=== PATIENT | female | born 1955 | race Caucasian/White ===

== ENCOUNTER → 2020-11-05 09:56 | Outpatient (CLI) | payer OTHER, SELFPAY ==
[2020-11-05 19:05] LABS: Alanine Aminotransferase 23 IU/L (<35); Albumin 3.8 g/dL (3.5-5.0); Albumin Globulin Ratio 1.3 (1.0-2.8); Alkaline Phosphatase 59 U/L (38-126); Aspartate Aminotransferase 30 IU/L (14-36); BUN Creatinine Ratio 14.9 (6-22); Bilirubin Total 0.7 mg/dL (0.2-1.3); Blood Urea Nitrogen 11 mg/dL (7-17); Calcium 9.4 mg/dL (8.4-10.2); Carbon Dioxide 32 mmol/L (22-32); Chloride 102 mmol/L (98-107); Cholesterol 228 mg/dL (140-199); Estimated Glomerular Filt Rate > 60.0 mL/min (>60); Globulin 2.9 g/dL (1.7-4.1); Glucose 102 mg/dL (80-110); HDL Cholesterol 52 mg/dL (40-60); HEMOLYSIS < 15 (0-50); LDL Cholesterol Calculated 143 mg/dL (<100); Potassium 4.1 mmol/L (3.4-5.1); Sodium 139 mmol/L (137-145); Total Protein 6.7 g/dL (6.3-8.2); Triglycerides 165 mg/dL (35-150)
[2020-11-07 12:20] LABS: HIV 1 & 2 Ab/Ag 4th Gen Combo NEGATIVE (NEGATIVE)
== END ==
PROVIDERS: PCP Physician Assistant; Referring Provider Family Medicine; Visit Provider Family Medicine
DX: Z00.00 Encounter for general adult medical examination without abnormal findings (principal)
CPT/HCPCS: 80053; 80061; 87389

== ENCOUNTER → 2021-02-24 12:10 | Outpatient (CLI) | payer OTHER, SELFPAY ==
--- NOTE | 2021-02-24 12:13 | DI.MRI.S_ITS ---
PROCEDURE: MRFOOT LT WO CON INDICATIONS: Pain in left foot TECHNIQUE: Noncontrast sagittal T1 spin echo and T2 fast spin echo with fat saturation, long-axis T1 spin echo and T2 fast spin echo with fat saturation, short-axis T1 spin echo and T2 fast spin echo with fat saturation through the forefoot. COMPARISON: None. FINDINGS: Image quality: Excellent. Bones and joints: Patchy T2 hyperintense/T1 hypointense signal is seen in the medial and lateral aspects of the 1st metatarsal head. Mild hallux valgus. T2 hyperintense signal within the medial and lateral hallux sesamoids. T2 hyperintense signal with interposed between the 1st and 2nd metatarsal heads, likely reflecting bursitis. No distinct fracture line or evidence of metatarsal stress fractures. No intraosseous lesions. Soft tissues: The visualized plantar foot muscles demonstrate normal signal and bulk. Visualized flexor and extensor tendons appear intact, without tenosynovitis. The distal insertions of the peroneus brevis and longus tendons appear intact. The principal Lisfranc ligament appears intact. Minimal T2 hyperintense signal is seen along the medial band of the plantar fascia without evidence of tear. IMPRESSION: 1. Mild hallux valgus deformity with degenerative changes of the 1st MTP and hallux sesamoid as detailed above. 2. Fluid interposed between the 1st and 2nd metatarsal heads, likely reflecting bursitis. 3. Mild fluid signal along the medial plantar fascia, which may reflect an acute inflammatory process. Dictated by: Jomar Upton M.D. on 02/24/2021 at 15:19 Approved by: Jomar Upton M.D. on 02/24/2021 at 15:26
== END ==
PROVIDERS: PCP Physician Assistant; Referring Provider Orthopaedic Surgery Foot and Ankle Surgery; Visit Provider Orthopaedic Surgery Foot and Ankle Surgery
DX: M20.12 Hallux valgus (acquired), left foot (principal); M79.672 Pain in left foot
CPT/HCPCS: 73718

== ENCOUNTER → 2022-05-25 13:44 | Outpatient (CLI) | payer MEDICARE, SELFPAY ==
[2022-05-25 21:21] LABS: Alanine Aminotransferase 31 IU/L (<35); Albumin Globulin Ratio 1.4 (1.0-2.8); Alkaline Phosphatase 56 U/L (38-126); Aspartate Aminotransferase 28 IU/L (14-36); BUN Creatinine Ratio 21.8 (6-22); Bilirubin Total 0.6 mg/dL (0.2-1.3); Blood Urea Nitrogen 17 mg/dL (7-17); Calcium 9.3 mg/dL (8.4-10.2); Carbon Dioxide 32 mmol/L (22-32); Chloride 97 mmol/L (98-107); Cholesterol 235 mg/dL (140-199); Estimated Glomerular Filt Rate > 60 mL/min (>60); Globulin 2.9 g/dL (1.7-4.1); Glucose 98 mg/dL (80-110); HDL Cholesterol 49 mg/dL (40-60); HEMOLYSIS < 15 (0-50); LDL Cholesterol Calculated 133 mg/dL (<100); Potassium 3.8 mmol/L (3.4-5.1); Sodium 136 mmol/L (137-145); Total Protein 6.9 g/dL (6.3-8.2); Triglycerides 264 mg/dL (35-150)
[2022-05-25 21:23] LABS: Add Manual Diff / Slide Review NO; Basophils Absolute Auto 0 /uL (0-100); Basophils Percent Auto 0.6 % (0-2); Eosinophils Absolute Auto 400 /uL (0-450); Eosinophils Percent Auto 6.3 % (2-4); Hematocrit 45.3 % (36-46); Lymphocytes Absolute Auto 2400 /uL (1100-4500); Mean Corpuscular HGB Conc 33.1 % (30-36); Mean Corpuscular Hemoglobin 30.4 PG (26-34); Mean Corpuscular Volume 91.6 fL (80-100); Monocytes Absolute Auto 600 /uL (0-900); Monocytes Percent Auto 9.8 % (3-14); Neutrophils Absolute Auto 2600 /uL (1500-7000); Neutrophils Percent Auto 43.3 % (50-75); Platelet Count 246 X10^3/uL (150-400); Red Blood Cell Count 4.95 X10^6/uL (4.0-5.2); Red Cell Distribution Width 13.7 % (11.6-14.8); White Blood Cell Count 6.1 X10^3/uL (4.5-11.0)
[2022-05-25 23:06] LABS: Hemoglobin A1C% w Est Avg Glu 5.7 % (4.0-6.0)
[2022-05-25 23:47] LABS: TSH w/ Reflex to FT4 1.94 uIU/mL (0.47-4.68)
== END ==
PROVIDERS: PCP Family Medicine; Visit Provider Family Medicine
DX: E78.2 Mixed hyperlipidemia (principal); F33.42 Major depressive disorder, recurrent, in full remission; G25.81 Restless legs syndrome; R60.9 Edema, unspecified
CPT/HCPCS: 80053; 80061; 83036; 84443; 85025

== ENCOUNTER → 2022-07-09 09:08 | Outpatient (CLI) | payer MEDICARE, SELFPAY ==
[2022-07-09 20:45] LABS: HEMOLYSIS < 15 (0-50); Iron 68 ug/dL (37-170)
[2022-07-09 20:57] LABS: Percent Iron Saturation 21 % (15-50); Total Iron Binding Capacity 321 ug/dL (265-497); Transferrin 257 mg/dL (206-381)
== END ==
PROVIDERS: PCP Family Medicine; Visit Provider Family Medicine
DX: G25.81 Restless legs syndrome (principal)
CPT/HCPCS: 83540; 83550

== ENCOUNTER → 2022-07-20 11:44 | Outpatient (CLI) | payer MEDICARE, SELFPAY ==
--- NOTE | 2022-07-20 11:46 | DI.MRI.S_ITS ---
PROCEDURE: MR SHOULDER RT WO CON INDICATIONS: right shoulder pain for 8 months. failed PT and cortisone shot TECHNIQUE: Noncontrast oblique coronal T2 fast spin echo with fat saturation, oblique sagittal T1 spin echo and T2 fast spin echo with fat saturation, axial T1 spin echo and T2 fast spin echo with fat saturation through the shoulder. COMPARISON: [facility] ([facility]), CR, XR SHOULDER RT MIN 2V, 04/08/2022, 9:37. FINDINGS: Image quality: Excellent. Rotator cuff: Mild T2 signal elevation diffusely throughout the supraspinatus and infraspinatus tendons at the humeral insertion sites extending the musculotendinous junctions, indicating tendinopathy. Superimposed moderate grade intrasubstance and bursal surface tearing of the mid/anterior supraspinatus tendon at the humeral insertion site, measuring roughly 5 mm anteroposterior. Low-grade partial-thickness intrasubstance tearing of the anterior, mid, and posterior infraspinatus tendon at the humeral insertion site extending the musculotendinous junction. Teres minor is intact. Subscapularis is intact. No rotator cuff atrophy. Bones and bursae: No bone marrow contusions or fractures. Moderate acromioclavicular joint degeneration. The acromion demonstrates conventional anatomy, without an os acromiale. No pathologic subacromial-subdeltoid or subcoracoid bursal fluid is present. Capsule and soft tissues: There is mild T2 signal elevation within the posterosuperior labrum. The long head of the biceps tendon demonstrates normal location and morphology. The rotator interval appears normal, without fibrosis. The coracohumeral ligament is normal in thickness. IMPRESSION: 1. Supraspinatus and infraspinatus tendinopathy with superimposed partial thickness tears. 2. No full-thickness rotator cuff tear. 3. Acromioclavicular joint osteoarthritis. 4. Possible posterosuperior labral tearing. Dictated by: Maday De La Torre M.D. on 07/20/2022 at 13:19 Transcribed by: CHIDI on 07/20/2022 at 13:21 Approved by: Maday De La Torre M.D. on 07/20/2022 at 16:47
== END ==
PROVIDERS: PCP Family Medicine; Referring Provider Family Medicine; Visit Provider Family Medicine
DX: M75.111 Incomplete rotator cuff tear or rupture of right shoulder, not specified as traumatic (principal); M19.011 Primary osteoarthritis, right shoulder; M25.511 Pain in right shoulder
CPT/HCPCS: 73221

== ENCOUNTER → 2022-08-06 14:01 | Outpatient (CLI) | payer MEDICARE, SELFPAY ==
[2022-08-10 14:54] LABS: Calprotectin, Stool 9 ug/g (0-120)
== END ==
PROVIDERS: PCP Family Medicine; Visit Provider Allergy & Immunology
DX: K52.9 Noninfective gastroenteritis and colitis, unspecified (principal)
CPT/HCPCS: 83993

== ENCOUNTER → 2022-12-02 12:12 | Outpatient (CLI) | payer MEDICARE, SELFPAY ==
--- NOTE | 2022-12-02 12:19 | DI.MG.S_ITS ---
BILATERAL DIGITAL SCREENING MAMMOGRAM 3D/2D WITH CAD: 12/02/2022 CLINICAL: Routine screening. Family history of breast cancer. Comparison is made to exams dated: 12/16/2020 mammogram, 09/14/2017 mammogram - outside location, and 10/05/2011 mammogram - [facility]. There are scattered areas of fibroglandular density in both breasts (category b / 25%-50% glandular tissue). Current study was also evaluated with a Computer Aided Detection (CAD) system. No significant masses, calcifications, or other findings are seen in either breast. There has been no significant interval change. IMPRESSION: NEGATIVE There is no mammographic evidence of malignancy. A 1 year screening mammogram is recommended. Based on the Tyrer Cuzick model (a risk assessment model) the patient's lifetime risk is 9.7% and her 10 year risk is 4.9%. According to the ACR, ACS, and NCCN guidelines, an annual breast MRI exam along with mammogram is recommended if the patient's lifetime risk is 20% or greater. This exam was interpreted at Station ID: [id number]. NOTE: For mammograms, a report in lay terms will be sent to the patient. Approximately 15% of breast malignancies will not be visualized mammographically. In the management of a palpable breast mass, a negative mammogram must not discourage biopsy of a clinically suspicious lesion. Electronically Signed By: Francis gregorio/sal:12/06/2022 14:29:32 copy to: EVANGELINA MACKEY letter sent: Normal Exam ACR BI-RADS Category 1: Negative [id number]
--- NOTE | 2022-12-02 12:19 | DI.US.S_ITS ---
PROCEDURE: US EXTREMITY NONVASC UPPER LT INDICATIONS: PALPABLE LUMP LEFT FOREARM TECHNIQUE: Real-time scanning was performed of the left forearm, with image documentation. COMPARISON: None. FINDINGS: Focused ultrasound examination of left forearm at patient's reported area of swelling shows no discrete soft tissue mass or fluid collection. IMPRESSION: No abnormality is seen in left forearm to account for patient's symptoms. Dictated by: Kenyon Moya M.D. on 12/02/2022 at 14:01 Approved by: Kenyon Moya M.D. on 12/02/2022 at 14:04
== END ==
PROVIDERS: PCP Family Medicine; Referring Provider Family Medicine; Visit Provider Family Medicine
DX: Z12.31 Encounter for screening mammogram for malignant neoplasm of breast (principal); Z80.3 Family history of malignant neoplasm of breast; R22.32 Localized swelling, mass and lump, left upper limb; M75.41 Impingement syndrome of right shoulder; M75.21 Bicipital tendinitis, right shoulder; M19.011 Primary osteoarthritis, right shoulder
CPT/HCPCS: 20611; 76882; 77063; 77067; 99214; J0702

== ENCOUNTER 2023-01-11 18:36 | Emergency (ER) | payer MEDICARE, SELFPAY ==
[2023-01-11 18:40] VITALS: BP 141/86; PULSE 62; RESP 16; TEMP 36.8; O2SAT 98; BMI 36.3
--- NOTE | 2023-01-11 18:46 | DI.RAD.S_ITS ---
PROCEDURE: XR CHEST 1V INDICATIONS: chest pain TECHNIQUE: One view of the chest was acquired. COMPARISON: [facility], , CHEST 2 VIEW, 04/25/2009, 15:25. FINDINGS: Surgical changes and devices: Right upper quadrant surgical clips.. Lungs and pleura: Lungs are clear. No pleural effusions or pneumothorax. Mediastinum: Mediastinal contours appear normal. Heart size is normal. Bones and chest wall: No suspicious bony lesions. Overlying soft tissues appear unremarkable. IMPRESSION: No acute cardiopulmonary process. Dictated by: Anand Cantu M.D. on 01/11/2023 at 20:01 Approved by: Anand Cantu M.D. on 01/11/2023 at 20:01
[2023-01-11 19:06] LABS: Add Manual Diff / Slide Review NO; Basophils Absolute Auto 100 /uL (0-100); Basophils Percent Auto 1.4 % (0-2); Eosinophils Absolute Auto 200 /uL (0-450); Eosinophils Percent Auto 2.1 % (2-4); Hematocrit 43.1 % (36-46); Hemoglobin 14.5 g/dL (12.0-16.0); Lymphocytes Absolute Auto 2600 /uL (1100-4500); Lymphocytes Percent Auto 34.4 % (25-40); Mean Corpuscular HGB Conc 33.7 % (30-36); Mean Corpuscular Hemoglobin 31.1 PG (26-34); Mean Corpuscular Volume 92.3 fL (80-100); Monocytes Absolute Auto 700 /uL (0-900); Monocytes Percent Auto 9.8 % (3-14); Neutrophils Absolute Auto 4000 /uL (1500-7000); Neutrophils Percent Auto 52.3 % (50-75); Platelet Count 229 X10^3/uL (150-400); Red Blood Cell Count 4.67 X10^6/uL (4.0-5.2); Red Cell Distribution Width 13.9 % (11.6-14.8); White Blood Cell Count 7.6 X10^3/uL (4.5-11.0)
[2023-01-11 19:12] LABS: PTT Partial Thromboplastin Tim 29 SECONDS (26-36)
[2023-01-11 19:14] LABS: Alanine Aminotransferase 32 IU/L (<35); Albumin 4.4 g/dL (3.5-5.0); Albumin Globulin Ratio 1.3 (1.0-2.8); Alkaline Phosphatase 48 U/L (38-126); Aspartate Aminotransferase 29 IU/L (14-36); BUN Creatinine Ratio 20.8 (6-22); Bilirubin Total 0.6 mg/dL (0.2-1.3); Blood Urea Nitrogen 15 mg/dL (7-17); Calcium 10.1 mg/dL (8.4-10.2); Carbon Dioxide 34 mmol/L (22-32); Chloride 96 mmol/L (98-107); Creatine Kinase 48 U/L (30-135); Estimated Glomerular Filt Rate > 60 mL/min (>60); Globulin 3.5 g/dL (1.7-4.1); Glucose 103 mg/dL (80-110); HEMOLYSIS < 15 (0-50); Lipase 67 U/L (23-300); Magnesium 2.3 mg/dL (1.6-2.3); Potassium 3.5 mmol/L (3.4-5.1); Sodium 137 mmol/L (137-145); Total Protein 7.9 g/dL (6.3-8.2)
[2023-01-11 19:25] LABS: Troponin I < 0.012 ng/mL (0.01-0.034)
[2023-01-11 22:32] VITALS: PULSE 63; RESP 17; O2SAT 96
[2023-01-11 23:00] VITALS: BP 127/65; PULSE 63; O2SAT 96
[2023-01-11 23:30] VITALS: BP 115/56; PULSE 57; RESP 14; O2SAT 91
[2023-01-11 23:42] LABS: COVID19 -Nasal RAPID Negative (Negative)
--- NOTE | 2023-01-11 23:58 | ED_ITS ---
HPI - Arrhythmia/Palpitations General Chief Complaint: Arrhythmia/Palpitations Stated Complaint: heart palpitations Time Seen by Provider: 01/11/23 23:10 Source: patient Mode of arrival: Ambulatory History of Present Illness HPI narrative: 67-year-old woman with a history of celiac disease and depression presented to her primary care physician today with complaints of 2 weeks of intermittent palpitations. Patient describes chest tightness and brief dizziness with the palpitations. After a couple irregular heartbeats she has the sensation of needing to cough or burp and then the symptoms resolve. She was seen by her primary care physician for further evaluation in the emergency department Related Data Home Medications Medication Instructions Recorded Confirmed cetirizine 10 mg tablet 10 mg PO DAILY PRN 10/07/20 01/11/23 zolpidem 5 mg tablet 5 mg PO BEDTIME PRN 10/07/20 01/11/23 hydrochlorothiazide 25 mg tablet 25 mg PO DAILY 04/08/22 01/11/23 ropinirole 0.25 mg tablet 0.25 mg PO BID 12/02/22 01/11/23 Previous Rx's Medication Instructions Recorded gabapentin 100 mg capsule 200 mg (2 x 100 mg) PO TID PRN 10/22/22 restless legs #360 caps gabapentin 400 mg capsule 400 mg PO BEDTIME #60 caps 10/22/22 bupropion HCl 150 mg 24 hr tablet, 150 mg PO QAM #30 tabs 01/01/23 extended release escitalopram oxalate 5 mg tablet 5 mg PO DAILY #30 tabs 01/01/23 Allergies Allergy/AdvReac Type Severity Reaction Status Date / Time clindamycin AdvReac Unknown rash Verified 01/11/23 18:45 egg AdvReac Unknown Verified 01/11/23 18:45 Egg Derived AdvReac Unknown Verified 01/11/23 18:45 gluten AdvReac Unknown Verified 01/11/23 18:45 milk AdvReac Unknown Verified 01/11/23 18:45 morphine AdvReac Unknown difficulty Verified 01/11/23 18:45 reversing, family hx Penicillins AdvReac Unknown hives Verified 01/11/23 18:45 prazosin AdvReac Unknown Verified 01/11/23 18:45 sulfamethoxazole AdvReac Unknown Diarrhea Verified 01/11/23 18:45 Review of Systems Review of Systems Narrative: Pertinent positive and negative findings as per HPI Patient History Medical History (Updated 01/12/23 @ 00:42 by Bernadette Solis MD) Acromioclavicular joint arthritis Sleep apnea Polycythemia GI symptoms Mass of left forearm Cervicalgia Partial thickness rotator cuff tear Biceps tendonitis on right Adverse effect of dopamine receptor agonist Depression, major Obesity (BMI 35.0-39.9 without comorbidity) Hyperlipidemia, mixed Esophageal reflux Hand arthritis Insomnia Restless leg syndrome Post-cholecystectomy syndrome Celiac disease Social History Smoking Status: Never smoker Smoking Status: Never smoker alcohol intake frequency: 0-2 drinks per day Substance Use Type: does not use Exam Initial Vital Signs Initial Vital Signs: Vital Signs Temperature 98.3 F 01/11/23 18:40 Pulse Rate 62 01/11/23 18:40 Respiratory Rate 16 01/11/23 18:40 Blood Pressure 141/86 H 01/11/23 18:40 Pulse Oximetry 98 01/11/23 18:40 Oxygen Delivery Method Room Air 01/11/23 18:40 Course Orders Ordered: ED Orders 01/11/23 18:46 XR chest 1V Stat EKG-12 Lead Stat 01/11/23 18:50 Complete Blood Count AUTO DIFF Stat Comprehensive Metabolic Panel Stat Lipase Stat Magnesium Stat PTT Partial Thromboplastin Christopher Stat Prothrombin Time INR Stat Troponin & CK Cardiac Panel Stat 01/11/23 22:00 COVID19 -Nasal RAPID Stat Discontinued Medications Aspirin (Aspirin 81 Mg Chew Tab) 324 mg PO NOW ONE Stop: 01/11/23 18:47 Last Admin: 01/11/23 20:58 Dose: Not Given Documented By: KLS Vital Signs Vital signs: Vital Signs - 8 hr 01/11/23 18:40 01/11/23 22:32 Temperature 98.3 F Pulse Rate 62 63 Respiratory Rate 16 17 Blood Pressure 141/86 H Pulse Oximetry 98 96 Oxygen Delivery Method Room Air Room Air MDM - Arrhythmia/Palpitations Lab Data 01/11/23 18:50 01/11/23 18:50 Labs: Lab Results 01/11/23 01/11/23 Range/Units 18:50 22:00 WBC 7.6 (4.5-11.0) X10^3/uL RBC 4.67 (4.0-5.2) X10^6/uL Hgb 14.5 (12.0-16.0) g/dL Hct 43.1 (36-46) % MCV 92.3 (80-100) fL MCH 31.1 (26-34) PG MCHC 33.7 (30-36) % RDW 13.9 (11.6-14.8) % Plt Count 229 (150-400) X10^3/uL Neut % (Auto) 52.3 (50-75) % Lymph % (Auto) 34.4 (25-40) % [place] % (Auto) 9.8 (3-14) % Eos % (Auto) 2.1 (2-4) % Baso % (Auto) 1.4 (0-2) % Neut # (Auto) 4000 (9766-6357) /uL Lymph # (Auto) 2600 (7081-8314) /uL [place] # (Auto) 700 (0-900) /uL Eos # (Auto) 200 (0-450) /uL Baso # (Auto) 100 (0-100) /uL PT 11.0 (10.1-12.7) SECONDS INR 1.0 (0.9-1.3) APTT 29 (26-36) SECONDS Sodium 137 (137-145) mmol/L Potassium 3.5 (3.4-5.1) mmol/L Chloride 96 L (98-107) mmol/L Carbon Dioxide 34 H (22-32) mmol/L BUN 15 (7-17) mg/dL Creatinine 0.72 (0.52-1.04) mg/dL Estimated GFR > 60 (>60) mL/min BUN/Creatinine Ratio 20.8 (6-22) Glucose 103 (80-110) mg/dL Calcium 10.1 (8.4-10.2) mg/dL Magnesium 2.3 (1.6-2.3) mg/dL Total Bilirubin 0.6 (0.2-1.3) mg/dL AST 29 (14-36) IU/L ALT 32 (<35) IU/L Alkaline Phosphatase 48 (38-126) U/L Total Creatine Kinase 48 (30-135) U/L Troponin I < 0.012 (0.01-0.034) ng/mL Total Protein 7.9 (6.3-8.2) g/dL Albumin 4.4 (3.5-5.0) g/dL Globulin 3.5 (1.7-4.1) g/dL Albumin/Globulin Ratio 1.3 (1.0-2.8) Lipase 67 (23-300) U/L SARS-CoV-2 (PCR) Negative (Negative) MDM Narrative Medical decision making narrative: CC: 2 weeks of intermittent and brief palpitations Complicating co-morbidities: Data collected from: patient, Social determinants of health that may influence the patients condition: Medical records reviewed: Primary care note from today for similar problem is reviewed Differential considered: PACs, PVCs, acute coronary syndrome, pericarditis, costochondritis Exam documented above, pertinent findings include: Reproducible chest pain along the left sternal border but not actually at the costochondral angles. Exam is otherwise completely benign. Lab Test results independently reviewed as above. Pertinent findings: CBC is unremarkable Chemistries show slightly elevated CO2 at 34 but otherwise unremarkable with normal renal function. Troponin is undetectable Lipase is unremarkable Independently reviewed EKG sinus bradycardia at a rate of 59 with normal intervals, normal axis and no acute ischemic changes Imaging studies independently reviewed: Chest x-ray is entirely reassuring Re-evaluations: Patient is reporting multiple palpations and sensations of her heart beating irregularly and on telemetry she remains in a sinus rhythm without any abnormalities Discussion: 67-year-old woman with 2 weeks of palpitations sometimes associated with chest pain comes in for further evaluation. Workup is reassuring. Her chest pain can be reproducible with pressure feels more along the ribs rather than costochondral margins. Her palpitations sensation is not associated with any obvious palpitations on telemetry. Labs are reassuring. At this point there is no evidence of acute coronary syndrome, pathologic arrhythmia, significant electrolyte abnormalities, pulmonary embolism. The patient notes that she is been having increased symptoms with her restless legs/restless body syndrome and her Requip has not been as effective. She is been tapering down on escitalopram tapering up on Wellbutrin and it sounds like she and her physician have had a good conversation regarding additional explanations for her palpitation sensations. She does have follow-up scheduled for Wednesday of this week. At this point she is safe for discharge Discharge Plan Departure Patient Disposition: Home Clinical Impression: Heart palpitations Activity Restrictions/Additional Instructions: Thank you for coming in today Your workup was very reassuring. There is no evidence of heart attack or heart attack like syndrome. Your chest x-ray was reassuring. No evidence of bacterial infection, kidney abnormalities or electrolyte dysfunction. When you are having the sensation of palpitations I was not seeing any significant cardiac rhythm changes. I do not have a complete explanation for the sensations that you are experiencing but it does sound like you are working with your primary care doctor to come to a more definitive answer. Please keep your appointment on Wednesday If you find that you are getting worse or develop any new symptoms, please feel free to return to the emergency department for further evaluation. Prescriptions: No Action gabapentin 100 mg capsule 200 mg PO TID PRN (Reason: restless legs) Qty: 360 6RF Rx Instructions: Take 2 caps (200mg) qam & qpm ; then take 2 caps(200mg) in addition to 1 cap(400mg) qhs; max dose per day 1000mg between both Rx's gabapentin 400 mg capsule 400 mg PO BEDTIME Qty: 60 6RF Rx Instructions: take 400mg cap in addition to 2-(100mg caps) total dose 600mg nightly. max dose 1000mg daily between both Rx's zolpidem 5 mg tablet 5 mg PO BEDTIME PRN cetirizine 10 mg tablet 10 mg PO DAILY PRN bupropion HCl 150 mg tablet extended release 24 hr 150 mg PO QAM Qty: 30 5RF Rx Instructions: decrease escitalaprm escitalopram oxalate 5 mg tablet 5 mg PO DAILY Qty: 30 0RF Rx Instructions: tapering escitalapram . see taper schedule hydrochlorothiazide 25 mg tablet 25 mg PO DAILY betamethasone acet,sod phos 6 mg/mL suspension 12 mg intrabursal ONCE Qty: 2 0RF ropinirole 0.25 mg tablet 0.25 mg PO BID Referrals: Darlene Price MD [Primary Care Provider] - Stand Alone Forms: Patient Portal/API
[2023-01-12] VITALS: BP 98/56; PULSE 63; RESP 15; O2SAT 93
[2023-01-12 00:28] VITALS: BP 132/72; PULSE 57; RESP 20; O2SAT 97
[2023-01-12 00:29] VITALS: BP 132/72; PULSE 55
[2023-01-12 00:30] VITALS: BP 138/75; PULSE 58; RESP 22; O2SAT 96
== END 2023-01-12 00:50 | disposition home or self-care (01) ==
PROVIDERS: Emergency Provider Emergency Medicine; PCP Family Medicine
DX: R00.2 Palpitations (principal); R07.9 Chest pain, unspecified; Z20.822 Contact with and (suspected) exposure to COVID-19
CPT/HCPCS: 36415; 71045; 80053; 81003; 82550; 83690; 83735; 84484; 85025; 85610; 85730; 87635; 93005; 93010; 99284; C9803

== ENCOUNTER → 2023-03-08 13:08 | Outpatient (CLI) | payer MEDICARE, SELFPAY ==
--- NOTE | 2023-03-08 13:11 | DI.RAD.S_ITS ---
PROCEDURE: XR KNEE LT 3V INDICATIONS: LEFT KNEE TECHNIQUE: 3 views of the knee were acquired. COMPARISON: None. FINDINGS: Bones: No fractures or dislocations. Osteoarthritic changes of the left knee with minimal spurring and moderate medial joint space narrowing. No suspicious bony lesions. Soft tissues: No joint effusion. No suspicious soft tissue calcifications. IMPRESSION: No acute osseous abnormalities. Moderate osteoarthritic changes of the left knee. Dictated by: Anand Cantu M.D. on 03/08/2023 at 15:29 Approved by: Anand Cantu M.D. on 03/08/2023 at 15:29
== END ==
PROVIDERS: PCP Family Medicine; Referring Provider Physical Medicine & Rehabilitation; Visit Provider Physical Medicine & Rehabilitation
DX: M17.12 Unilateral primary osteoarthritis, left knee (principal); M75.41 Impingement syndrome of right shoulder; M19.011 Primary osteoarthritis, right shoulder
CPT/HCPCS: 20611; 73562; 99214

== ENCOUNTER → 2023-04-05 11:00 | Outpatient (CLI) | payer MEDICARE, SELFPAY ==
[2023-04-14 14:52] LABS: DQ8 (DQA1 03XX, DQB1 0302) Negative (.)
== END ==
PROVIDERS: Internal Medicine Gastroenterology; PCP Family Medicine
DX: Z12.11 Encounter for screening for malignant neoplasm of colon (principal); K90.0 Celiac disease; K90.41 Non-celiac gluten sensitivity; T78.1XXA Other adverse food reactions, not elsewhere classified, initial encounter
CPT/HCPCS: 81377

== ENCOUNTER → 2023-06-15 09:43 | Outpatient (CLI) | payer MEDICARE, SELFPAY ==
[2023-06-15 19:10] LABS: Cholesterol 215 mg/dL (140-199); HDL Cholesterol 49 mg/dL (40-60); LDL Cholesterol Calculated 137 mg/dL (<100); Triglycerides 146 mg/dL (35-150)
[2023-06-15 19:22] LABS: Hematocrit 44.2 % (36-46); Hemoglobin 14.8 g/dL (12.0-16.0)
[2023-06-15 19:40] LABS: TSH w/ Reflex to FT4 1.34 uIU/mL (0.47-4.68)
== END ==
PROVIDERS: PCP Family Medicine; Visit Provider Family Medicine
DX: E78.2 Mixed hyperlipidemia (principal); R00.0 Tachycardia, unspecified
CPT/HCPCS: 80061; 84443; 85014; 85018

== ENCOUNTER → 2023-07-29 08:39 | Outpatient (CLI) | payer MEDICARE, SELFPAY ==
[2023-07-29 19:30] LABS: HEMOLYSIS < 15 (0-50); Iron 106 ug/dL (37-170)
[2023-07-29 19:40] LABS: Percent Iron Saturation 33 % (15-50); Total Iron Binding Capacity 322 ug/dL (265-497); Transferrin 251 mg/dL (206-381)
[2023-07-29 20:07] LABS: Ferritin 69 ng/mL (11-264)
== END ==
PROVIDERS: PCP Family Medicine; Visit Provider Internal Medicine Sleep Medicine
DX: G25.81 Restless legs syndrome (principal); E83.10 Disorder of iron metabolism, unspecified
CPT/HCPCS: 82728; 83540; 83550

== ENCOUNTER → 2023-09-06 11:23 | Outpatient (CLI) | payer MEDICARE, SELFPAY ==
[2023-09-06 19:47] LABS: C-Reactive Protein Quant < 0.5 mg/dL (<1.0)
[2023-09-08 21:09] LABS: Deamidated Gliadin Ab IgA 4 units (0-19); Deamidated Gliadin Ab IgG 3 units (0-19); Immunoglobulin A,Qn 203 mg/dL (87-352); t-Transglutaminase IgA 3 U/mL (0-3)
[2023-09-10 06:10] LABS: Chromogranin A, Serum 32.3 ng/mL (0.0-101.8)
== END ==
PROVIDERS: PCP Family Medicine; Visit Provider Internal Medicine Gastroenterology
DX: Z12.11 Encounter for screening for malignant neoplasm of colon (principal); R19.7 Diarrhea, unspecified; K90.0 Celiac disease; T78.1XXA Other adverse food reactions, not elsewhere classified, initial encounter
CPT/HCPCS: 82784; 83516; 86140; 86316

== ENCOUNTER → 2023-12-15 09:30 | Outpatient (CLI) | payer MEDICARE, SELFPAY ==
[2023-12-15 19:10] LABS: HEMOLYSIS < 15 (0-50); Iron 211 ug/dL (37-170)
[2023-12-15 19:21] LABS: Total Iron Binding Capacity 272 ug/dL (265-497); Transferrin 216 mg/dL (206-381)
[2023-12-15 19:22] LABS: Percent Iron Saturation 78 % (15-50)
[2023-12-15 19:46] LABS: Ferritin 160 ng/mL (11-264)
== END ==
PROVIDERS: PCP Family Medicine; Referring Provider Internal Medicine Sleep Medicine; Visit Provider Internal Medicine Sleep Medicine
DX: G25.81 Restless legs syndrome (principal)
CPT/HCPCS: 82728; 83540; 83550

== ENCOUNTER → 2024-03-24 09:59 | Outpatient (CLI) | payer MEDICARE, SELFPAY ==
[2024-03-24 19:54] LABS: HEMOLYSIS 19 (0-50); Iron 132 ug/dL (37-170)
[2024-03-24 19:57] LABS: Alanine Aminotransferase 34 IU/L (<35); Albumin 4.1 g/dL (3.5-5.0); Albumin Globulin Ratio 1.3 (1.0-2.8); Alkaline Phosphatase 58 U/L (38-126); Aspartate Aminotransferase 33 IU/L (14-36); BUN Creatinine Ratio 20.5 (6-22); Bilirubin Total 0.9 mg/dL (0.2-1.3); Blood Urea Nitrogen 18 mg/dL (7-17); Calcium 9.7 mg/dL (8.4-10.2); Carbon Dioxide 29 mmol/L (22-32); Chloride 101 mmol/L (98-107); Estimated Glomerular Filt Rate > 60 mL/min (>60); Globulin 3.1 g/dL (1.7-4.1); Glucose 131 mg/dL (80-110); HEMOLYSIS 21 (0-50); Potassium 3.5 mmol/L (3.4-5.1); Sodium 137 mmol/L (137-145); Total Protein 7.2 g/dL (6.3-8.2)
[2024-03-24 20:04] LABS: Hemoglobin A1C% w Est Avg Glu 5.6 % (4.0-6.0)
[2024-03-24 20:05] LABS: Percent Iron Saturation 47 % (15-50); Total Iron Binding Capacity 278 ug/dL (265-497); Transferrin 253 mg/dL (206-381)
[2024-03-24 20:33] LABS: Ferritin 124 ng/mL (11-264)
[2024-03-24 20:47] LABS: Vitamin B12 443 pg/mL (239-931)
[2024-03-27 04:36] LABS: Ionized Calcium 5.2 mg/dL (4.5-5.6)
== END ==
PROVIDERS: PCP Family Medicine; Referring Provider Psychiatry & Neurology Neurology; Visit Provider Psychiatry & Neurology Neurology
DX: G25.81 Restless legs syndrome (principal)
CPT/HCPCS: 80053; 82330; 82607; 82728; 83036; 83540; 83550; 83735

== ENCOUNTER → 2024-06-15 09:25 | Outpatient (CLI) | payer MEDICARE, SELFPAY ==
[2024-06-15 18:48] LABS: Add Manual Diff / Slide Review NO; Basophils Absolute Auto 100 /uL (0-100); Basophils Percent Auto 0.5 % (0-2); Eosinophils Absolute Auto 200 /uL (0-450); Eosinophils Percent Auto 1.5 % (2-4); Hematocrit 43.3 % (36-46); Hemoglobin 14.4 g/dL (12.0-16.0); Lymphocytes Absolute Auto 1900 /uL (1100-4500); Lymphocytes Percent Auto 13.4 % (25-40); Mean Corpuscular HGB Conc 33.2 % (30-36); Mean Corpuscular Hemoglobin 30.9 PG (26-34); Mean Corpuscular Volume 93.3 fL (80-100); Monocytes Absolute Auto 800 /uL (0-900); Monocytes Percent Auto 5.8 % (3-14); Neutrophils Absolute Auto 11000 /uL (1500-7000); Neutrophils Percent Auto 78.8 % (50-75); Platelet Count 207 X10^3/uL (150-400); Red Blood Cell Count 4.64 X10^6/uL (4.0-5.2); Red Cell Distribution Width 13.7 % (11.6-14.8)
[2024-06-15 19:21] LABS: Erythrocyte Sedimentation Rate 4 MM/HR (0-20)
[2024-06-15 19:29] LABS: TSH w/ Reflex to FT4 1.24 uIU/mL (0.47-4.68)
== END ==
PROVIDERS: PCP Family Medicine; Visit Provider Physician Assistant Medical
DX: H60.90 Unspecified otitis externa, unspecified ear (principal); R22.1 Localized swelling, mass and lump, neck; B37.9 Candidiasis, unspecified
CPT/HCPCS: 84443; 85025; 85651; 87070; 87075; 87205

== ENCOUNTER 2024-06-15 17:14 | Emergency (ER) | payer MEDICARE, SELFPAY ==
[2024-06-15] VITALS (9 sets, daily range): BP systolic 123–163; BP diastolic 63–82; PULSE 79–108; RESP 16–20; TEMP 36.5; O2SAT 95–99; BMI 35.4
--- NOTE | 2024-06-15 17:53 | DI.RAD.S_ITS ---
PROCEDURE: XR CHEST 1V INDICATIONS: suspected sepsis TECHNIQUE: One view of the chest was acquired. COMPARISON: [facility] ([place]), CR, XR CHEST 2V, 06/02/2024, 16:10. [facility], CR, XR CHEST 1V, 01/11/2023, 19:15. FINDINGS: Surgical changes and devices: Right upper quadrant surgical clips. Lungs and pleura: Lungs are clear. No pleural effusions or pneumothorax. Mediastinum: Mediastinal contours appear normal. Heart size is normal. Bones and chest wall: No suspicious bony lesions. Overlying soft tissues appear unremarkable. IMPRESSION: No acute cardiothoracic process. Dictated by: Ruben Cox M.D. on 06/15/2024 at 17:38 Approved by: Ruben Cox M.D. on 06/15/2024 at 17:39
--- NOTE | 2024-06-15 17:53 | EKG_ITS ---
[address] [address] Test Date: 2024-06-15 Pat Name: Lyn Youssef Department: Room: Gender: Female [employer] Supervisor: : [id number] Requested By: Order Number: [id number] Reading MD: Alexandru Hargrove MD Measurements Intervals [place] Rate: 105 P: 57 DC: 160 QRS: 10 QRSD: 80 T: 20 QT: 318 QTc: 420 Interpretive Statements Sinus tachycardia Possible Left atrial enlargement Electronically Signed On 06-16-2024 6:42:13 PDT by Alexandru Hargrove MD
[2024-06-15 18:56] LABS: Add Manual Diff / Slide Review NO; Appearance Urine UA CLEAR; Basophils Absolute Auto 100 /uL (0-100); Basophils Percent Auto 1.1 % (0-2); Bilirubin Urine UA NEGATIVE (NEGATIVE); Color Urine UA YELLOW; Eosinophils Absolute Auto 200 /uL (0-450); Eosinophils Percent Auto 1.2 % (2-4); Glucose Urine UA NEGATIVE (Negative); Hematocrit 41.9 % (36-46); Ketones Urine UA NEGATIVE (NEGATIVE); Leukocyte Esterase Urine UA NEGATIVE (NEGATIVE); Lymphocytes Absolute Auto 2200 /uL (1100-4500); Mean Corpuscular HGB Conc 33.5 % (30-36); Mean Corpuscular Hemoglobin 31.1 PG (26-34); Mean Corpuscular Volume 92.7 fL (80-100); Monocytes Absolute Auto 1000 /uL (0-900); Monocytes Percent Auto 6.9 % (3-14); Neutrophils Absolute Auto 10400 /uL (1500-7000); Neutrophils Percent Auto 74.8 % (50-75); Nitrite Urine UA NEGATIVE (Negative); Occult Blood Urine UA NEGATIVE (Negative); Platelet Count 205 X10^3/uL (150-400); Protein Urine UA NEGATIVE (Negative); Red Blood Cell Count 4.52 X10^6/uL (4.0-5.2); Red Cell Distribution Width 13.6 % (11.6-14.8); Urobilinogen Urine UA 0.2 E.U./dL (0.2); White Blood Cell Count 13.9 X10^3/uL (4.5-11.0)
[2024-06-15 19:02] LABS: Bacteria Urine Occasional (0-1); Culture Indicated Urine Cult Not Indicated; INR 0.9 (0.9-1.3); Prothrombin Time 10.4 SECONDS (9.4-12.5); RBC Urine 0-1/HPF (0-5/HPF); Squamous Epithelial Cell Urine 0-1 /HPF (0-5/HPF); Urine Volume 10mL (spun); WBC Urine 0-1/HPF (0-5/HPF)
[2024-06-15 19:04] LABS: PTT Partial Thromboplastin Tim 31 SECONDS (25.1-36.5)
[2024-06-15 19:05] LABS: Lactate (Lactic Acid) 2.6 mmol/L (0.7-2.1)
[2024-06-15] MEDS: SODIUM CHLORIDE 0.9% 1,000 ML 1000 ML IV ×2 (19:24→21:02)
--- NOTE | 2024-06-15 19:32 | ED.NECK ---
HPI - Neck Pain/Injury General Chief Complaint: Neck Pain/Injury Stated Complaint: sent by [facility], swollen glands Time Seen by Provider: 06/15/24 19:31 Mode of arrival: Ambulatory History of Present Illness HPI Narrative: 68-year-old female past medical history hyperlipidemia, SVT, comes into the ED from home for evaluation of swollen neck glands. She states that she was diagnosed with a pneumonia proximally 2 weeks ago completed taking antibiotics steroids, she states that she went to the walk-in clinic due to swelling to her neck. However she is able to tolerate p.o. liquids solids tolerating secretions no voice changes no stridor no trismus. She states that she has completed the dose of antibiotics which was levofloxacin on Wednesday. As well as the steroid pack. She states that she is still having some mild coughing, however she is just concerned that she noticed some swelling to her neck. She denies any other symptoms such as headache visual disturbances chest pain fever chills nausea vomiting abdominal pain or any other GI/ symptoms at this time. Related Data Home Medications Medication Instructions Recorded Confirmed cetirizine 10 mg tablet 10 mg PO DAILY PRN 10/07/20 06/12/24 dicyclomine 10 mg capsule 10 mg PO ONCE 11/08/23 06/12/24 gabapentin 100 mg capsule 200 mg PO DAILY PRN restless legs 05/05/24 06/12/24 gabapentin 400 mg capsule 400 mg PO BEDTIME 05/05/24 06/12/24 lamotrigine 25 mg tablet 25 mg PO DAILY 05/05/24 06/12/24 pramipexole 0.375 mg 0.375 mg PO DAILY 05/05/24 06/12/24 tablet,extended release 24 hr ropinirole 0.25 mg tablet 0.25 mg PO ONCE PRN Restless legs 05/05/24 06/12/24 Previous Rx's Medication Instructions Recorded famotidine 40 mg tablet 40 mg PO DAILY chest discomfort- 02/15/24 possible GI #30 tabs zolpidem 5 mg tablet 5 mg PO BEDTIME PRN insomnia #30 03/11/24 tabs hydrochlorothiazide 25 mg tablet 25 mg PO DAILY Swelling in legs 06/01/24 #90 tabs propranolol 20 mg tablet 20 mg PO BID PRN anxiety #30 tabs 06/01/24 doxycycline hyclate 100 mg capsule 100 mg PO BID #14 caps 06/02/24 prednisone 20 mg tablet 40 mg (2 x 20 mg) PO DAILY #10 tabs 06/02/24 albuterol sulfate 90 mcg/actuation See Rx Instructions inhalation 06/12/24 aerosol inhaler Q4-6H PRN shortness of breath or wheezing #6.7 grams benzonatate 200 mg capsule 200 mg PO TID PRN cough #30 caps 06/12/24 fluticasone 250 mcg-salmeterol 50 1 inh inhalation BID reactive 06/12/24 mcg/dose blistr powdr for airway 14 days #60 ea inhalation (Advair Diskus) fluconazole 200 mg tablet 200 mg PO DAILY #1 tab 06/15/24 (Diflucan) [id number] 3.3 3 drp EAR-LEFT TID 7 days #10 mL 06/15/24 mg-3 mg-10 mg-0.5 mg/mL ear drops,susp (Cortisporin-TC) Allergies Allergy/AdvReac Type Severity Reaction Status Date / Time escitalopram AdvReac Intermediate Anxiety Verified 06/02/24 16:11 nirmatrelvir [From Paxlovid] AdvReac Intermediate Periodic Verified 06/02/24 16:11 Limb Movement ritonavir [From Paxlovid] AdvReac Intermediate Periodic Verified 06/02/24 16:11 Limb Movement methocarbamol AdvReac Mild Restless Verified 06/02/24 16:11 Leg Syndrome clindamycin AdvReac Unknown rash Verified 06/02/24 16:11 egg AdvReac Unknown Verified 06/02/24 16:11 Egg Derived AdvReac Unknown Verified 06/02/24 16:11 gluten AdvReac Unknown Verified 06/02/24 16:11 milk AdvReac Unknown Verified 06/02/24 16:11 morphine AdvReac Unknown difficulty Verified 06/02/24 16:11 reversing, family hx Penicillins AdvReac Unknown hives Verified 06/02/24 16:11 prazosin AdvReac Unknown Verified 06/02/24 16:11 sulfamethoxazole AdvReac Unknown Diarrhea Verified 06/02/24 16:11 SSRI/ SNRI AdvReac Severe Worsens Uncoded 06/02/24 16:11 restless leg levofloxacin AdvReac Intermediate Joint Pain Uncoded 03/17/25 10:50 SSRI AdvReac Anxiety Uncoded 06/02/24 16:11 Review of Systems Review of Systems Narrative: General: Denies fever, chills, weight loss HEENT: Positive Neck swelling, Denies headache, eye drainage, eye irritation, head trauma, sore throat, voice change Cardiovascular: Denies any chest pain, palpitations, tachycardia Respiratory: Positive cough denies shortness of breath wheeze stridor GI/: Denies any abdominal pain, nausea, vomiting, diarrhea, bright red blood per rectum, melanotic stools, urinary frequency, urinary retention, dysuria, hematuria MSK: Denies any joint pain, muscle pains, swelling Skin: Denies any rashes, lesions, discoloration Neuro: Denies any headache, lightheadedness, dizziness, fainting, weakness Psych: Denies SI/HI Patient History Medical History (Updated 06/15/24 @ 21:29 by Pramod Geronimo DO) Celiac disease REAL on CPAP SVT (supraventricular tachycardia) Adverse effects of medication Left knee DJD Acromioclavicular joint arthritis Partial thickness rotator cuff tear Adverse effect of dopamine receptor agonist Depression, major Obesity (BMI 35.0-39.9 without comorbidity) Hyperlipidemia, mixed Esophageal reflux Hand arthritis Insomnia Restless leg syndrome Post-cholecystectomy syndrome Celiac disease Social History Smoking Status: Never smoker Smoking Status: Never smoker alcohol intake frequency: 0-2 drinks per day Exam Narrative Exam Narrative: General: Cooperative, comfortable, well-developed, not in acute distress HEENT: Normocephalic, atraumatic, PERRLA, normal sclera, eyelids normal, posterior oropharynx clear without any signs of obstruction, patient is speaking in full sentences protecting airway uvula midline no voice changes no stridor no trismus Neck: Active full range of motion, atraumatic, cervical lymphadenopathy noted however no overlying gross erythema ecchymosis Chest: Normal to inspection, negative crepitus, no overlying erythema ecchymosis Respiratory: Normal respiratory effort, not in acute respiratory distress, clear to auscultation bilaterally negative cough, wheeze, tachypnea, rhonchi, rales Cardiology: Regular rate rhythm negative gallop, murmur, rubs GI/: Normal to inspection, soft, nonrigid, no tenderness to palpation, exam deferred MSK: Full range of active range of motion of all 4 extremities, atraumatic Skin: No rashes lesions noted Neuro: Alert awake oriented x3, moves all 4 extremities spontaneously, cranial nerves intact, able to answer all questions appropriately follows commands appropriately Psych: Cooperative, negative suicidal or homicidal ideations Initial Vital Signs Initial Vital Signs: Vital Signs Temperature 97.7 F 06/15/24 17:48 Pulse Rate 108 H 06/15/24 17:48 Respiratory Rate 18 06/15/24 17:48 Blood Pressure 163/82 H 06/15/24 17:48 Pulse Oximetry 98 06/15/24 17:48 Oxygen Delivery Method Room Air 06/15/24 17:48 Course Orders Ordered: Discontinued Medications Sodium Chloride (Normal Saline 0.9%) 1,000 mls @ 1,000 mls/hr IV BOLUS ONE Stop: 06/15/24 18:52 Last Infusion: 06/15/24 20:30 Dose: Infused Documented By: Admin: 06/15/24 19:24 Dose: 1,000 mls/hr Documented By: CHANO Sodium Chloride (Normal Saline 0.9%) 1,000 mls @ 1,000 mls/hr IV BOLUS ONE Stop: 06/15/24 20:32 Last Infusion: 06/15/24 21:38 Dose: Infused Documented By: Admin: 06/15/24 21:02 Dose: 1,000 mls/hr Documented By: CHANO Ondansetron HCl (Ondansetron 4 Mg/2 Ml Inj) 4 mg IV NOW PRN PRN Reason: Nausea And Vomiting Vital Signs Vital signs: Vital Signs - 8 hr 06/15/24 21:01 06/15/24 21:30 06/15/24 21:30 Pulse Rate 96 H 99 H Respiratory Rate 18 Blood Pressure 130/63 123/65 Pulse Oximetry 97 99 Oxygen Delivery Method 06/15/24 21:39 Pulse Rate 105 H Respiratory Rate 20 Blood Pressure 123/65 Pulse Oximetry 95 Oxygen Delivery Method Room Air MDM - Neck Pain/Injury Differential Diagnosis Differential diagnosis: Likely other (Pneumonia, electrolyte abnormality, cervical lymphadenopathy, cervical abscess) Lab Data 06/15/24 18:30 06/15/24 19:10 Labs: Lab Results 06/15/24 06/15/24 06/15/24 Range/Units 18:30 19:10 19:50 WBC 13.9 H (4.5-11.0) X10^3/uL RBC 4.52 (4.0-5.2) X10^6/uL Hgb 14.0 (12.0-16.0) g/dL Hct 41.9 (36-46) % MCV 92.7 (80-100) fL MCH 31.1 (26-34) PG MCHC 33.5 (30-36) % RDW 13.6 (11.6-14.8) % Plt Count 205 (150-400) X10^3/uL Neut % (Auto) 74.8 (50-75) % Lymph % (Auto) 16.0 L (25-40) % [place] % (Auto) 6.9 (3-14) % Eos % (Auto) 1.2 L (2-4) % Baso % (Auto) 1.1 (0-2) % Neut # (Auto) 43919 H (0530-3150) /uL Lymph # (Auto) 2200 (5249-9743) /uL Hamilton # (Auto) 1000 H (0-900) /uL Eos # (Auto) 200 (0-450) /uL Baso # (Auto) 100 (0-100) /uL PT 10.4 (9.4-12.5) SECONDS INR 0.9 (0.9-1.3) APTT 31 (25.1-36.5) SECONDS Sodium 139 (137-145) mmol/L Potassium 3.7 (3.4-5.1) mmol/L Chloride 101 (98-107) mmol/L Carbon Dioxide 30 (22-32) mmol/L BUN 10 (7-17) mg/dL Creatinine 0.72 (0.52-1.04) mg/dL Estimated GFR > 60 (>60) mL/min BUN/Creatinine Ratio 13.9 (6-22) Glucose 103 (80-110) mg/dL Lactate 2.6 H (0.7-2.1) mmol/L Calcium 9.6 (8.4-10.2) mg/dL Total Bilirubin 0.9 (0.2-1.3) mg/dL AST 31 (14-36) IU/L ALT 34 (<35) IU/L Alkaline Phosphatase 63 (38-126) U/L Total Protein 7.3 (6.3-8.2) g/dL Albumin 4.1 (3.5-5.0) g/dL Globulin 3.2 (1.7-4.1) g/dL Albumin/Globulin Ratio 1.3 (1.0-2.8) Lipase 60 (23-300) U/L Procalcitonin 0.063 (<0.5) ng/mL Urine Color Yellow Urine Appearance Clear Urine pH 6.0 (4.5-8.0) Ur Specific [place] 1.010 (1.000-1.035) Urine Protein Negative (Negative) Urine Glucose (UA) Negative (Negative) g/dL Urine Ketones Negative (NEGATIVE) Urine Occult Blood Negative (Negative) Urine Nitrate Negative (Negative) Urine Bilirubin Negative (NEGATIVE) Urine Urobilinogen 0.2 (0.2) E.U./dL Ur Leukocyte Esterase Negative (NEGATIVE) Urine RBC 0-1/hpf (0-5/HPF) Urine WBC 0-1/hpf (0-5/HPF) Ur Squamous Epith Cells 0-1 /hpf (0-5/HPF) Urine Bacteria Occasional (0-1) (None) Ur Culture Indicated? Cult not indicated Vol Urine Centrifuged 10ml (spun) SARS-CoV-2 (PCR) Negative (Negative) Influenza A (RT-PCR) Flu a negative (NEGATIVE) Influenza B (RT-PCR) Flu b negative (NEGATIVE) RSV (PCR) Negative (Negative) /20/25 Range/Units 21:04 WBC (4.5-11.0) X10^3/uL RBC (4.0-5.2) X10^6/uL Hgb (12.0-16.0) g/dL Hct (36-46) % MCV (80-100) fL MCH (26-34) PG MCHC (30-36) % RDW (11.6-14.8) % Plt Count (150-400) X10^3/uL Neut % (Auto) (50-75) % Lymph % (Auto) (25-40) % [place] % (Auto) (3-14) % Eos % (Auto) (2-4) % Baso % (Auto) (0-2) % Neut # (Auto) (2522-8770) /uL Lymph # (Auto) (4785-6586) /uL Hamilton # (Auto) (0-900) /uL Eos # (Auto) (0-450) /uL Baso # (Auto) (0-100) /uL PT (9.4-12.5) SECONDS INR (0.9-1.3) APTT (25.1-36.5) SECONDS Sodium (137-145) mmol/L Potassium (3.4-5.1) mmol/L Chloride (98-107) mmol/L Carbon Dioxide (22-32) mmol/L BUN (7-17) mg/dL Creatinine (0.52-1.04) mg/dL Estimated GFR (>60) mL/min BUN/Creatinine Ratio (6-22) Glucose (80-110) mg/dL Lactate 0.8 (0.7-2.1) mmol/L Calcium (8.4-10.2) mg/dL Total Bilirubin (0.2-1.3) mg/dL AST (14-36) IU/L ALT (<35) IU/L Alkaline Phosphatase (38-126) U/L Total Protein (6.3-8.2) g/dL Albumin (3.5-5.0) g/dL Globulin (1.7-4.1) g/dL Albumin/Globulin Ratio (1.0-2.8) Lipase (23-300) U/L Procalcitonin (<0.5) ng/mL Urine Color Urine Appearance Urine pH (4.5-8.0) Ur Specific [place] (1.000-1.035) Urine Protein (Negative) Urine Glucose (UA) (Negative) g/dL Urine Ketones (NEGATIVE) Urine Occult Blood (Negative) Urine Nitrate (Negative) Urine Bilirubin (NEGATIVE) Urine Urobilinogen (0.2) E.U./dL Ur Leukocyte Esterase (NEGATIVE) Urine RBC (0-5/HPF) Urine WBC (0-5/HPF) Ur Squamous Epith Cells (0-5/HPF) Urine Bacteria (None) Ur Culture Indicated? Vol Urine Centrifuged SARS-CoV-2 (PCR) (Negative) Influenza A (RT-PCR) (NEGATIVE) Influenza B (RT-PCR) (NEGATIVE) RSV (PCR) (Negative) Imaging Data CT soft tissue neck: Radiologist's Impression: [address] [address] [address] Scan Report Signed Patient: Lyn Youssef MR#: [id number] : 1955 Acct:[id number] Age/Sex: 68 / F Date of Service: 06/15/24 Loc: ED Accession Number: [id number] Procedure: CT soft tissue neck w con Ordering Provider: Pramod Geronimo D.O. PROCEDURE: CT SOFT TISSUE NECK W CON INDICATIONS: swelling to neck TECHNIQUE: After the administration of intravenous contrast, 3.0 mm axial sections acquired from the sella to the aortic arch. Additional oblique axial 3.0 mm sections acquired through the pharynx. 3 mm thick coronal and sagittal reformats were generated. For radiation dose reduction, the following was used: automated exposure control. COMPARISON: None. FINDINGS: Image quality: Excellent. Lymph nodes: No enlarged lymph nodes seen throughout the neck. Vessels: Visualized vasculature appears patent. Neck spaces: The oropharynx, nasopharynx, and pharynx demonstrate no mucosal lesions. The vocal cords, false vocal cords, pyriform sinuses, epiglottis, vallecula, and tongue base all appear normal. Extramucosal spaces appear unremarkable. Glands: The parotid and submandibular glands appear normal. Thyroid gland demonstrates no significant abnormality. Miscellaneous: Visualized brain and orbits appear normal. Lung apices appear clear. Superficial soft tissues appear normal. Bones: No suspicious bony lesions. Visualized sinuses and mastoids appear unremarkable. Degenerative changes of the cervical spine. IMPRESSION: No enlarged cervical lymph nodes or masses are identified. Chest x-ray: Radiologist's Impression: [address] [address] XRay Report Signed Patient: Lyn Youssef MR#: [id number] : 1955 Acct:[id number] Age/Sex: 68 / F Date of Service: 06/15/24 Loc: ED Accession Number: [id number] Procedure: XR chest 1V Ordering Provider: Darren An MD PROCEDURE: XR CHEST 1V INDICATIONS: suspected sepsis TECHNIQUE: One view of the chest was acquired. COMPARISON: [facility] ([place] CR, XR CHEST 2V, 06/02/2024, 16:10. [facility], CR, XR CHEST 1V, 01/11/2023, 19:15. FINDINGS: Surgical changes and devices: Right upper quadrant surgical clips. Lungs and pleura: Lungs are clear. No pleural effusions or pneumothorax. Mediastinum: Mediastinal contours appear normal. Heart size is normal. Bones and chest wall: No suspicious bony lesions. Overlying soft tissues appear unremarkable. IMPRESSION: No acute cardiothoracic process. ECG Data Interpretation: EKG interpreted ED physician sinus tachycardia 105 beats per minute QTC [address] changes no STEMI MDM Narrative Medical decision making narrative: Patient is a 68-year-old female with a past medical history of hyperlipidemia, coming into the ED for evaluation of swollen neck gland. She states that she was recently diagnosed with pneumonia a proximally 2 weeks ago did complete her course of antibiotics which was a fluoroquinolone on Wednesday states that at that same time she completed a course of steroids. She states that she went to the walk-in clinic was diagnosed with thrush was given fluconazole as well as an ear infection was given ear antibiotics, however she states that she was feeling swelling to her neck region but denies any difficulty swallowing breathing so was instructed to come into the ED for evaluation. On exam very minor cervical lymphadenopathy but no overlying erythema ecchymosis posterior oropharynx clear without any signs of obstruction, patient did have elevated WBC but most likely secondary to recent antibiotic use chest x-ray without any signs of acute cardiopulmonary abnormality, CT soft tissue neck did not show any enlarged cervical lymph nodes no obstruction. Patient did have a respiratory panel performed which was negative. Symptoms more likely secondary to her persistent coughing. Patient was given strict return precautions she verbalized understanding of this and agrees to being discharged home with outpatient follow up Discharge Plan Departure Patient Disposition: Home Clinical Impression: Cough Activity Restrictions/Additional Instructions: Please follow up with your primary care doctor Please read the discharge instructions sheet carefully and bring all papers to all doctor follow-up visits, as it may contain information that your doctor may want to see. Disease processes change and evolve, if your symptoms worsen or if you develop any new symptoms that are concerning to you please return for evaluation. Your evaluation today does not show any evidence of any life-threatening/serious illnesses requiring admission to the hospital or surgery. Please follow-up with your doctor for re-evaluation in approximately 1 day. Seek immediate medical attention for any worrisome symptoms. *If you do not have a primary care provider please contact the [facility] Resource line at [phone]. They will ask some questions about your medical history and help get you set up with a doctor in the community. Prescriptions: No Action zolpidem 5 mg tablet 5 mg PO BEDTIME PRN (Reason: insomnia) Qty: 30 0RF Rx Instructions: Avoid using every night. Never take with ETOH. propranolol 20 mg tablet 20 mg PO BID PRN (Reason: anxiety) Qty: 30 2RF Rx Instructions: start with 1/2 tab po BID prn for anxiety hydrochlorothiazide 25 mg tablet 25 mg PO DAILY Qty: 90 0RF cetirizine 10 mg tablet 10 mg PO DAILY PRN lamotrigine 25 mg tablet 25 mg PO DAILY Patient Comments: [NO ORIGINAL SIG] pramipexole 0.375 mg tablet extended release 24 hr 0.375 mg PO DAILY gabapentin 100 mg capsule 200 mg PO DAILY PRN (Reason: restless legs) Rx Instructions: Take 2 caps (200mg) qam; then take 1 cap (400mg) at 3pm, and an additional 1 cap(400mg) at 8pm; max dose per day 1000mg between both Rx's gabapentin 400 mg capsule 400 mg PO BEDTIME Rx Instructions: take 1 400mg cap at 3pm, and then an additional 1 400mg cap at 8pm, total dose 800mg nightly. max dose 1000mg daily between both Rx's ropinirole 0.25 mg tablet 0.25 mg PO ONCE PRN (Reason: Restless legs) Patient Comments: Patient only takes As needed alongside her Pramipexole Rx. famotidine 40 mg tablet 40 mg PO DAILY Qty: 30 3RF Rx Instructions: 1 month trial. doxycycline hyclate 100 mg capsule 100 mg PO BID Qty: 14 0RF prednisone 20 mg tablet 40 mg PO DAILY Qty: 10 0RF benzonatate 200 mg capsule 200 mg PO TID PRN (Reason: cough) Qty: 30 0RF albuterol sulfate 90 mcg/actuation HFA aerosol inhaler See Rx Instructions inhalation Q4-6H PRN (Reason: shortness of breath or wheezing) Qty: 6.7 0RF Rx Instructions: 1 to 2 puffs inhaled every 4-6 hours PRN; Do Not take Propranolol while needing to use inhaler. fluticasone propion-salmeterol [Advair Diskus] 250-50 mcg/dose blister with device 1 inh inhalation BID 14 Days Qty: 60 0RF Rx Instructions: Do not take propranolol while taking this medication. Cortisporin-TC 3.3-3-10-0.5 mg/mL drops,suspension 3 drp EAR-LEFT TID 7 Days Qty: 10 0RF fluconazole [Diflucan] 200 mg tablet 200 mg PO DAILY Qty: 1 0RF dicyclomine 10 mg capsule 10 mg PO ONCE Referrals: Darlene Price MD [Primary Care Provider] - Stand Alone Forms: Patient Portal/API/Survey
[2024-06-15 19:34] LABS: Alanine Aminotransferase 34 IU/L (<35); Albumin 4.1 g/dL (3.5-5.0); Albumin Globulin Ratio 1.3 (1.0-2.8); Alkaline Phosphatase 63 U/L (38-126); Aspartate Aminotransferase 31 IU/L (14-36); BUN Creatinine Ratio 13.9 (6-22); Bilirubin Total 0.9 mg/dL (0.2-1.3); Blood Urea Nitrogen 10 mg/dL (7-17); Calcium 9.6 mg/dL (8.4-10.2); Carbon Dioxide 30 mmol/L (22-32); Chloride 101 mmol/L (98-107); Estimated Glomerular Filt Rate > 60 mL/min (>60); Globulin 3.2 g/dL (1.7-4.1); Glucose 103 mg/dL (80-110); HEMOLYSIS < 15 (0-50); Lipase 60 U/L (23-300); Potassium 3.7 mmol/L (3.4-5.1); Sodium 139 mmol/L (137-145); Total Protein 7.3 g/dL (6.3-8.2)
[2024-06-15 19:50] LABS: Procalcitonin 0.063 ng/mL (<0.5)
[2024-06-15 20:29] LABS: Reflexed Lactate in 2 Hours Y
--- NOTE | 2024-06-15 20:40 | PC.NURSE ---
Dr Juanpablo figueroa for patient use personal albuterol inhaler at this time
[2024-06-15 20:48] LABS: Influenza A - CEPHEID Flu A NEGATIVE (NEGATIVE); Influenza B - CEPHEID Flu B NEGATIVE (NEGATIVE); Respiratory Syncytial Virus Negative (Negative)
[2024-06-15 20:49] LABS: COVID-19 CEPHEID 4-PLEX PCR Negative (Negative)
[2024-06-15 21:21] LABS: Lactate 2HR (Lactic Acid Rflx) 0.8 mmol/L (0.7-2.1)
== END 2024-06-15 21:43 | disposition home or self-care (01) ==
PROVIDERS: Emergency Medicine; Emergency Provider Student in an Organized Health Care Education/Training Program; PCP Family Medicine
DX: R05.9 Cough, unspecified (principal); R22.1 Localized swelling, mass and lump, neck; B37.9 Candidiasis, unspecified; H60.90 Unspecified otitis externa, unspecified ear; R00.0 Tachycardia, unspecified; Z86.79 Personal history of other diseases of the circulatory system
CPT/HCPCS: 0241U; 36415; 70491; 71045; 80053; 81001; 83605; 83690; 84145; 84443; 85025; 85610; 85651; 85730; 87040; 87070; 87075; 87205; 93005; 93010; 96360; 96361; 99284; Q9967

== ENCOUNTER → 2024-07-03 11:57 | Outpatient (CLI) | payer MEDICARE, SELFPAY ==
[2024-07-03 18:38] LABS: Add Manual Diff / Slide Review NO; Basophils Absolute Auto 0 /uL (0-100); Basophils Percent Auto 0.7 % (0-2); Eosinophils Absolute Auto 200 /uL (0-450); Eosinophils Percent Auto 3.3 % (2-4); Hemoglobin 15.1 g/dL (12.0-16.0); Lymphocytes Absolute Auto 2300 /uL (1100-4500); Lymphocytes Percent Auto 33.3 % (25-40); Mean Corpuscular HGB Conc 33.5 % (30-36); Mean Corpuscular Hemoglobin 31.5 PG (26-34); Mean Corpuscular Volume 93.8 fL (80-100); Monocytes Absolute Auto 700 /uL (0-900); Monocytes Percent Auto 9.6 % (3-14); Neutrophils Absolute Auto 3700 /uL (1500-7000); Neutrophils Percent Auto 53.1 % (50-75); Platelet Count 265 X10^3/uL (150-400); Red Blood Cell Count 4.79 X10^6/uL (4.0-5.2); Red Cell Distribution Width 13.6 % (11.6-14.8); White Blood Cell Count 6.9 X10^3/uL (4.5-11.0)
[2024-07-03 19:18] LABS: Alanine Aminotransferase 38 IU/L (<35); Albumin 4.2 g/dL (3.5-5.0); Albumin Globulin Ratio 1.4 (1.0-2.8); Alkaline Phosphatase 58 U/L (38-126); Aspartate Aminotransferase 36 IU/L (14-36); BUN Creatinine Ratio 17.4 (6-22); Bilirubin Total 0.6 mg/dL (0.2-1.3); Blood Urea Nitrogen 15 mg/dL (7-17); C-Reactive Protein Quant < 0.5 mg/dL (<1.0); Calcium 10.1 mg/dL (8.4-10.2); Carbon Dioxide 29 mmol/L (22-32); Chloride 101 mmol/L (98-107); Estimated Glomerular Filt Rate > 60 mL/min (>60); Globulin 2.9 g/dL (1.7-4.1); Glucose 123 mg/dL (80-110); HEMOLYSIS < 15 (0-50); Potassium 3.9 mmol/L (3.4-5.1); Sodium 137 mmol/L (137-145); Total Protein 7.1 g/dL (6.3-8.2)
[2024-07-03 20:06] LABS: Erythrocyte Sedimentation Rate 3 MM/HR (0-20)
[2024-07-05 11:11] LABS: QuantiFERON Mitogen Value >10.00 IU/mL (.); QuantiFERON Nil Value 0.04 IU/mL (.); QuantiFERON TB Gold Plus Negative (Negative); QuantiFERON TB1 Ag Value 0.05 IU/mL (.); QuantiFERON TB2 Ag Value 0.05 IU/mL (.)
== END ==
PROVIDERS: PCP Family Medicine; Visit Provider Family Medicine
DX: R05.3 Chronic cough (principal); Z11.1 Encounter for screening for respiratory tuberculosis
CPT/HCPCS: 80053; 85025; 85651; 86140; 86480

== ENCOUNTER → 2024-07-05 14:15 | Outpatient (CLI) | payer MEDICARE, SELFPAY ==
--- NOTE | 2024-07-05 14:17 | DI.CT.S_ITS ---
PROCEDURE: CT CHEST WO CON INDICATIONS: cough since APR, treated for pneumonia TECHNIQUE: Noncontrast 5 mm thick sections acquired from the pulmonary apices to the posterior costophrenic angles. 1 mm lung window, 5 mm thick coronal and sagittal and 7 mm axial MIP reformats were then acquired. For radiation dose reduction, the following was used: automated exposure control, adjustment of mA and/or kV according to patient size. COMPARISON: [facility], CR, XR CHEST 1V, 06/15/2024, 17:53. FINDINGS: Image quality: Diagnostic. Lower Neck: No enlarged lymph nodes. Thyroid: Normal CT appearance. Axillae: No enlarged lymph nodes. Chest Wall: Unremarkable. Bones: No bone lesions. Degenerative endplate changes in the midthoracic spine. Lungs and Pleura: 0.6 x 0.5 cm solid nodule in the lateral right lower lobe superior segment, 3/146. A linear 6 mm subpleural nodules present in the posterolateral left lower lobe, 3/156. No other nodules, masses, ground-glass opacities, airspace consolidations, or pleural effusions. Heart: Heart size is normal. No pericardial effusion. Thoracic Vessels: The aorta and pulmonary arteries demonstrate normal size. Mediastinum and Nicky: No enlarged lymph nodes. Esophagus: No wall thickening. No hiatal hernia. Upper Abdomen: Occasional hepatic cysts of varying sizes. Cholecystectomy changes. Visible portions of upper abdominal organs are otherwise normal. IMPRESSION: No acute or subacute pulmonary parenchymal disease. Small, nonspecific bilateral lower lobe lung nodules, most likely benign. Recommend follow-up chest CT in 6-12 months depending on risk factors. Dictated by: Desiree Castro M.D. on 07/05/2024 at 15:26 Approved by: Desiree Castro M.D. on 07/05/2024 at 15:40
== END ==
PROVIDERS: PCP Family Medicine; Referring Provider Family Medicine; Visit Provider Family Medicine
DX: R05.3 Chronic cough (principal); R91.1 Solitary pulmonary nodule
CPT/HCPCS: 71250

== ENCOUNTER → 2024-08-28 15:51 | Outpatient (CLI) | payer MEDICARE, SELFPAY | LOC: LAB 15:52 | PROVIDERS: PCP Family Medicine; Visit Provider Family Medicine | DX: R30.0 Dysuria (principal) | CPT/HCPCS: 87086 ==

== ENCOUNTER → 2024-10-09 15:07 | Outpatient (CLI) | payer MEDICARE, SELFPAY ==
--- NOTE | 2024-10-09 15:09 | DI.MG.S_ITS ---
MM screening mammo BI: 10/09/2024. BI-RADS: 1 CLINICAL: 69-year old female for bilateral screening mammogram. Tyrer-Cuzick lifetime risk of 8.2%. No personal or first-degree family history of breast cancer. Current reported family history of breast cancer: maternal aunt. PRIOR EXAMS 12/02/2022, 12/16/2020. MAMMOGRAPHY TECHNIQUE: 2D and 3D (tomosynthesis) digital mammographic views obtained, with additional images as needed for full coverage. Current study was also evaluated with a Computer Aided Detection (CAD) system. DENSITY B. There are scattered areas of fibroglandular density. MAMMOGRAPHY FINDINGS Bilateral: No suspicious mass, asymmetry, microcalcification, or other abnormality seen. No significant change from comparison. IMPRESSION: * No evidence of malignancy. RECOMMENDATIONS Bilateral * Annual screening mammography. OVERALL ASSESSMENT CATEGORY BI-RADS-1: Negative. The [employer] recommends annual screening mammography beginning at age 40 for women with average risk of breast cancer. ELECTRONICALLY SIGNED: Sherlyn Doss M.D. on 10/09/2024 at 04:34:45 PM PT Interpreting Station ID: [id number]
== END ==
PROVIDERS: PCP Family Medicine; Referring Provider Family Medicine; Visit Provider Family Medicine
DX: Z12.31 Encounter for screening mammogram for malignant neoplasm of breast (principal); Z80.3 Family history of malignant neoplasm of breast
CPT/HCPCS: 77063; 77067

== ENCOUNTER → 2024-10-23 13:35 | Outpatient (CLI) | payer MEDICARE, SELFPAY ==
[2024-10-23 19:08] LABS: HEMOLYSIS < 15 (0-50); Iron 105 ug/dL (37-170)
[2024-10-23 19:22] LABS: Percent Iron Saturation 31 % (15-50); Total Iron Binding Capacity 338 ug/dL (265-497); Transferrin 299 mg/dL (206-381)
[2024-10-23 19:46] LABS: Ferritin 101 ng/mL (11-264)
== END ==
PROVIDERS: PCP Family Medicine; Visit Provider Family Medicine
DX: G25.81 Restless legs syndrome (principal)
CPT/HCPCS: 82728; 83540; 83550

== ENCOUNTER → 2024-11-21 09:13 | Outpatient (CLI) | payer MEDICARE, SELFPAY | LOC: RESP 09:13 | PROVIDERS: PCP Family Medicine; Referring Provider Family Medicine; Visit Provider Family Medicine | DX: R05.3 Chronic cough (principal); R06.2 Wheezing; R94.2 Abnormal results of pulmonary function studies | CPT/HCPCS: 94060; 94726; 94729 ==

== ENCOUNTER → 2025-01-12 10:40 | Outpatient (CLI) | payer MEDICARE, SELFPAY ==
--- NOTE | 2025-01-12 | DI.RAD.S_ITS ---
PROCEDURE: XR HIP W PEL IF DONE RT 2V INDICATIONS: PAIN TECHNIQUE: AP pelvis with lateral view(s) of the right hip(s). COMPARISON: None. FINDINGS: Bones: Mild joint space narrowing of the his bilaterally, with small lateral acetabular osteophytes. No acute fractures or dislocations. Pelvic ring appears intact. No suspicious bony lesions. Mild degenerative changes in the included spine. Soft tissues: The visualized bowel gas pattern is normal. No suspicious soft tissue calcifications. IMPRESSION: Mild bilateral hip osteoarthrosis. Dictated by: Shanelle Castillo [facility] Interpreted: Kenneth Jarrell MD on 01/12/2025 at 12:03 Transcribed by: DENISA on 01/12/2025 at 13:27 Approved by: Kenneth Jarrell M.D. on 01/12/2025 at 14:32
--- NOTE | 2025-01-12 10:42 | DI.CT.S_ITS ---
PROCEDURE: CT CHEST WO CON INDICATIONS: worsening cough, pulm nodule, history of pneumonia TECHNIQUE: Noncontrast 5 mm thick sections acquired from the pulmonary apices to the posterior costophrenic angles. 1 mm lung window, 5 mm thick coronal and sagittal and 7 mm axial MIP reformats were then acquired. For radiation dose reduction, the following was used: automated exposure control, adjustment of mA and/or kV according to patient size. COMPARISON: [facility], CT, CT CHEST WO [facility], 07/05/2024, 14:27. FINDINGS: Image quality: Diagnostic. Lower Neck: No enlarged lymph nodes. Thyroid: No thyroid nodules which require sonographic follow up, per consensus guidelines. Axillae: No enlarged lymph nodes. Chest Wall: Unremarkable. Bones: Unremarkable. Lungs and Pleura: No pneumothorax or pleural effusions. Unchanged 6 x 5 mm right lower lobe pulmonary nodule, previous image 145 of series 3 and current image 143 of series 3. Unchanged 3 x 6 mm oval pulmonary nodule, left lower lobe, previous image 156 and current image 163. Unchanged subpleural 4 mm pulmonary nodule, posterior right upper lobe, previous image 60 and current image 60. No new or increasing pulmonary nodules. No pulmonary infiltrates. Heart: Heart size is normal. No pericardial effusion. Thoracic Vessels: The aorta and pulmonary arteries demonstrate normal size. Mediastinum and Nicky: No enlarged lymph nodes. Esophagus: No wall thickening. No hiatal hernia. Upper Abdomen: Visualized upper abdomen solid organs and bowel loops appear normal. IMPRESSION: 1. No acute pulmonary process. 2. Stable small pulmonary nodules. Comment: Consider [address] follow-up of these pulmonary nodules. Dictated by: Abram Girard M.D. on 01/12/2025 at 16:22 Approved by: Abram Girard M.D. on 01/12/2025 at 16:25
== END ==
LOC: CT 10:41
PROVIDERS: PCP Family Medicine; Referring Provider Family Medicine; Visit Provider Family Medicine
DX: R91.1 Solitary pulmonary nodule (principal); R05.3 Chronic cough; M25.551 Pain in right hip; M16.0 Bilateral primary osteoarthritis of hip
CPT/HCPCS: 71250; 73502; 87070; 87205